=== PATIENT | female | born 1995 ===

== ENCOUNTER 2017-03-01 23:22 | Emergency (ER) | payer SELFPAY ==
[2017-03-01] MEDS ORDERED: TDAP ADULT 0.5 ML INJ (BOOSTRIX) IM ONE (23:58)
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
[2017-03-02 01:10] VITALS: BP 118/72; PULSE 100; RESP 16; TEMP 97.9; O2SAT 96
== END 2017-03-02 01:00 | disposition home or self-care (01) ==
LOC: CED 23:22
PROC: 0HQFXZZ Repair Right Hand Skin, External Approach (ICD-10-PCS; principal; 2017-03-01)
DX: S61.411A Laceration without foreign body of right hand, initial encounter (principal); Z23 Encounter for immunization; Z87.891 Personal history of nicotine dependence; W25.XXXA Contact with sharp glass, initial encounter
CPT/HCPCS: 73130-PO